=== PATIENT | male | born 1945 | race Caucasian/White ===

== ENCOUNTER 2023-02-26 11:53 | Emergency (ER) | payer MEDICARE, MEDICAID ==
[~2023-02-26] VITALS: Ht 167.6 cm; Wt 120.0 kg
[~2023-02-26 11:53] MED LIST: ASPIRIN; CINA60 MT; DOCU-332 MT; FENO134C21 MT; GLIP5TAB22 PO; LASIX; METO-396 MT; METROPOLOL; NIFE90TA60 MT; NIFEDIPINE; OMEP20CA14 MT; SEVE800T8 MT; SITA50TA3 MT
[2023-02-26 12:22] VITALS: O2SAT 98
[2023-02-26] MEDS ORDERED: ACETAMINOPHEN 325MG TABLET PO ONE (13:00)
[2023-02-26] MEDS ORDERED: METHOCARBAMOL 500MG TABLET PO ONE (13:00)
[2023-02-26] MEDS ORDERED: TOPUD MT ×2 (17:33→17:42)
[2023-02-26] MEDS ORDERED: LIDO700A15 TP ×2 (17:33→17:42)
[2023-02-26 18:32] VITALS: BP 125/68; PULSE 84; RESP 18; TEMP 98
== END 2023-02-26 18:34 | disposition home or self-care (01) ==
LOC: ER 11:53
DX: M54.50 Low back pain, unspecified (principal); Z79.899 Other long term (current) drug therapy; Z88.0 Allergy status to penicillin; I12.0 Hypertensive chronic kidney disease with stage 5 chronic kidney disease or end stage renal disease; N18.6 End stage renal disease
CPT/HCPCS: 72131; 99284

== ENCOUNTER 2024-04-28 17:31 | Inpatient (IN) | payer MEDICARE, MEDICAID ==
[~2024-04-28] VITALS: Ht 170.2 cm; Wt 114.3 kg
[~2024-04-28 17:31] MED LIST changes: -DOCU-332 MT; +LIDO700A15 TP; +TOPUD MT; +[UNRECOGNIZED DRUG - CODE] MT
[2024-04-28] MEDS: CALCIUM GLUCONATE 100MG/ML 10ML VIAL IV ONE (18:22)
[2024-04-28] MEDS: ATROPINE SULFATE 1MG/10ML SYR IV ONE (18:28)
[2024-04-28] MEDS ORDERED: EPINEPHRINE 5 MG in SODIUM CHLORIDE 0.9% 245 ML IV STA (18:41)
[2024-04-28] MEDS: EPINEPHRINE 5 MG in SODIUM CHLORIDE 0.9% 245 ML IV STA (19:42)
[2024-04-28 19:48] LABS: BASOPHILS % 0.8 % (0.0-2.0); EOSINOPHILS % 1.7 % (0.0-5.0); HEMATOCRIT. 33.9 % (42.0-52.0); LYMPHOCYTES % 34.6 % (20.0-50.0); MEAN CORPUSCULAR HEMOGLOBIN 29.9 pg (28.0-32.0); MEAN CORPUSCULAR HGB CONC 32.5 g/dL (31.0-37.0); MEAN CORPUSCULAR VOLUME 92.1 fL (80.0-94.0); MEAN PLATELET VOLUME 9.3 fl (7.4-10.4); MONOCYTES % 11.2 % (2.0-8.0); NEUTROPHILS % 51.7 % (40.0-76.0); PLATELET 210 x1000/uL (130-400); RED BLOOD CELL COUNT 3.68 mill/uL (4.7-6.1); RED CELL DISTRIBUTION WIDTH 14.8 % (11.6-14.6); WHITE BLOOD COUNT 9.8 x1000/uL (4.5-11.0)
[2024-04-28 19:56] LABS: CHLORIDE 101 mEq/L (98-107); SODIUM 141 mEq/L (136-145)
[2024-04-28 19:57] LABS: CARBON DIOXIDE 25 mEq/L (21-32)
[2024-04-28 19:58] LABS: CALCIUM 9.8 mg/dL (8.7-10.4)
[2024-04-28 20:02] LABS: GLUCOSE 179 mg/dL (70-105); UREA NITROGEN BLOOD 35 mg/dL (9-23)
[2024-04-28 20:03] LABS: TROPONIN I HIGH SENSITIVITY 18 ng/L (3.0-53)
[2024-04-28 20:09] LABS: PARTIAL THROMBOPLASTIN TIME 25.2 sec (23.4-31.0); PROTHROMBIN TIME 11.4 sec (9.6-11.0)
[2024-04-28 20:37] LABS: CREATININE 5.8 mg/dL (0.6-1.3)
[2024-04-28] MEDS ORDERED: DOPAMINE 800MG PREMIX (DOUBLE) 250 ML IV PRN (21:00)
[2024-04-28] MEDS ORDERED: IPRATROPIUM/ALBUTEROL 0.5-3(2.5)MG/3ML NEB HHN PRN (21:15)
[2024-04-28] MEDS ORDERED: DEXTROSE 50% WATER 50ML SYRINGE IV PRN (21:15)
[2024-04-28] MEDS ORDERED: GUAIFENESIN 200MG/10ML SUGAR FREE UDC PO PRN (21:30)
[2024-04-28] MEDS: DOPAMINE 800MG PREMIX (DOUBLE) 250 ML IV PRN (22:18)
[2024-04-28] MEDS: ENOXAPARIN 40MG/0.4ML SYR SUBCUT SCH (22:28)
[2024-04-28 23:24] LABS: PHOSPHORUS 6.2 mg/dL (2.5-4.9)
[2024-04-28 23:50] LABS: LACTIC ACID 4.5 mmol/L (0.4-2.0)
[2024-04-29] VITALS (9 sets, daily range): BP systolic 145–184; BP diastolic 56–89; PULSE 88–99; RESP 15–19; TEMP 36.61404–36.6696; O2SAT 99–100
[2024-04-29] MEDS ORDERED: SODIUM CHLORIDE 0.45% 500 ML IV ONE (00:45)
[2024-04-29 03:32] LABS: HEMATOCRIT. 35.4 % (42.0-52.0); HEMOGLOBIN. 11.7 g/dL (14.0-18.0); MEAN CORPUSCULAR HEMOGLOBIN 30.4 pg (28.0-32.0); MEAN CORPUSCULAR HGB CONC 33.1 g/dL (31.0-37.0); MEAN CORPUSCULAR VOLUME 92.1 fL (80.0-94.0); MEAN PLATELET VOLUME 9.6 fl (7.4-10.4); PLATELET 225 x1000/uL (130-400); RED BLOOD CELL COUNT 3.84 mill/uL (4.7-6.1); RED CELL DISTRIBUTION WIDTH 14.5 % (11.6-14.6); WHITE BLOOD COUNT 12.2 x1000/uL (4.5-11.0)
[2024-04-29 03:36] LABS: CHLORIDE 91 mEq/L (98-107); POTASSIUM 4.6 mEq/L (3.5-5.1)
[2024-04-29 03:37] LABS: CARBON DIOXIDE 22 mEq/L (21-32)
[2024-04-29 03:42] LABS: IRON 38 ug/dL (65-175)
[2024-04-29 03:43] LABS: LDL CHOLESTEROL 114 mg/dL (5-100); TRIGLYCERIDE 62 mg/dL (0-150); UREA NITROGEN BLOOD 40 mg/dL (9-23)
[2024-04-29 03:44] LABS: ALANINE AMINOTRANSFERASE 9 IU/L (10-49); ALBUMIN 4.8 g/dL (3.2-4.8); ASPARTATE AMINOTRANSFERASE 12 IU/L (<34); CHOLESTEROL 133 mg/dL (<200); HDL CHOLESTEROL 28 mg/dL (>55); PHOSPHORUS 5.5 mg/dL (2.5-4.9)
[2024-04-29 03:45] LABS: BILIRUBIN TOTAL 0.3 mg/dL (0.1-1.0); FERRITIN 1542 ng/mL (22-322); FOLIC ACID (FOLATE) SERUM > 20.00 ng/mL (>5.38); PROTEIN TOTAL 7.3 g/dL (6.0-8.3); TOTAL IRON BINDING CAPACITY 288 ug/dl (250-425); VITAMIN B12 SERUM 573 pg/mL (211-911)
[2024-04-29 03:46] LABS: THYROID STIMULATING HORMONE 1.04 uIU/mL (0.55-4.78)
[2024-04-29 03:51] LABS: SODIUM 131 mEq/L (136-145)
[2024-04-29 03:56] LABS: GLUCOSE 587 mg/dL (70-105)
[2024-04-29 03:57] LABS: CREATININE 6.3 mg/dL (0.6-1.3)
[2024-04-29 04:19] LABS: DIFFERENTIAL COMMENT 1
[2024-04-29 05:37] LABS: ATYPICAL LYMPHOCYTES 1; PLATELET ESTIMATE NORMAL
[2024-04-29] MEDS: INSULIN REGULAR (HUMULIN R) 1000UNITS/10ML VIAL SUBCUT NR (06:05)
[2024-04-29 06:42] LABS: BG BASE EXCESS 2.9 mmol/L (-2.0-3.0); BG CARBOXYHEMOGLOBIN 0.9 % (0.5-1.5); BG DEOXYHEMOGLOBIN 4.3 % (0.0-5.0); BG FRACTION INSPIRED OXYGEN 21; BG HCO3 ACT 28.1 mmol/L (21.0-28.0); BG OXYGEN SATURATION 95.7 % (94.0-98.0); BG OXYHEMOGLOBIN 94.8 % (94.0-98.0); BG PCO2 45.1 mmHg (35.0-48.0); BG PH 7.412 (7.350-7.450); BG SAMPLE SITE RIGHT RADIAL; BG TOTAL HEMOGLOBIN 12.7 g/dL (13.5-17.5); BG VENT MODE ROOM AIR
[2024-04-29] MEDS: INSULIN LISPRO 100 UNITS/ML SUBCUT SCH (08:20)
[2024-04-29] MEDS: BLOOD SUGAR DIAGNOSTIC STRIP TEST SCH (09:15)
[2024-04-29] MEDS: CINACALCET HCL 60MG TABLET PO SCH (09:39)
[2024-04-29] MEDS: SEVELAMER CARBONATE 800 MG TABLET PO SCH (09:39)
[2024-04-29] MEDS: FOLIC ACID/VITAMIN B COMP W-C TABLET PO SCH (09:39)
[2024-04-29] MEDS: ONDANSETRON HCL 4MG/2ML INJ IV PRN (15:42)
[2024-04-29] MEDS: HYDRALAZINE 20MG/ML VIAL IV PRN (15:50)
[2024-04-29] MEDS: ENOXAPARIN 40MG/0.4ML SYR SUBCUT SCH (20:55)
[2024-04-30 05:09] LABS: BASOPHILS % 0.9 % (0.0-2.0); EOSINOPHILS % 1.4 % (0.0-5.0); HEMATOCRIT. 34.4 % (42.0-52.0); HEMOGLOBIN. 11.4 g/dL (14.0-18.0); LYMPHOCYTES % 10.3 % (20.0-50.0); MEAN CORPUSCULAR HEMOGLOBIN 30.6 pg (28.0-32.0); MEAN CORPUSCULAR HGB CONC 33.2 g/dL (31.0-37.0); MEAN CORPUSCULAR VOLUME 92.1 fL (80.0-94.0); MEAN PLATELET VOLUME 9.4 fl (7.4-10.4); MONOCYTES % 13.1 % (2.0-8.0); NEUTROPHILS % 74.3 % (40.0-76.0); PLATELET 170 x1000/uL (130-400); RED BLOOD CELL COUNT 3.73 mill/uL (4.7-6.1); RED CELL DISTRIBUTION WIDTH 14.7 % (11.6-14.6); WHITE BLOOD COUNT 6.8 x1000/uL (4.5-11.0)
[2024-04-30 05:17] LABS: POTASSIUM 4.7 mEq/L (3.5-5.1)
[2024-04-30 05:18] LABS: CALCIUM 9.6 mg/dL (8.7-10.4)
[2024-04-30 05:25] LABS: PHOSPHORUS 5.8 mg/dL (2.5-4.9)
[2024-04-30 05:37] LABS: CREATININE 5.8 mg/dL (0.6-1.3)
[2024-05-01] VITALS (76 sets, daily range): BP systolic 77–178; BP diastolic 34–71; PULSE 61–81; RESP 12–26; TEMP 36.55848–37.05852; O2SAT 89–100
[2024-05-01 06:51] LABS: CHLORIDE 100 mEq/L (98-107); SODIUM 140 mEq/L (136-145)
[2024-05-01 06:52] LABS: CALCIUM 9.5 mg/dL (8.7-10.4); CARBON DIOXIDE 25 mEq/L (21-32)
[2024-05-01 06:55] LABS: BASOPHILS % 1.3 % (0.0-2.0); EOSINOPHILS % 2.8 % (0.0-5.0); HEMATOCRIT. 31.7 % (42.0-52.0); HEMOGLOBIN. 10.5 g/dL (14.0-18.0); LYMPHOCYTES % 13.1 % (20.0-50.0); MEAN CORPUSCULAR HEMOGLOBIN 30.5 pg (28.0-32.0); MEAN CORPUSCULAR HGB CONC 33.1 g/dL (31.0-37.0); MEAN CORPUSCULAR VOLUME 92.3 fL (80.0-94.0); MEAN PLATELET VOLUME 9.6 fl (7.4-10.4); NEUTROPHILS % 68.8 % (40.0-76.0); PLATELET 189 x1000/uL (130-400); RED BLOOD CELL COUNT 3.43 mill/uL (4.7-6.1); RED CELL DISTRIBUTION WIDTH 14.6 % (11.6-14.6); WHITE BLOOD COUNT 6.8 x1000/uL (4.5-11.0)
[2024-05-01 06:57] LABS: UREA NITROGEN BLOOD 46 mg/dL (9-23)
[2024-05-01 06:59] LABS: PHOSPHORUS 7.2 mg/dL (2.5-4.9)
[2024-05-01 07:04] LABS: CREATININE 7.9 mg/dL (0.6-1.3); GLUCOSE 116 mg/dL (70-105)
[2024-05-01] MEDS: SEVELAMER CARBONATE 800 MG TABLET PO SCH (18:20)
[2024-05-01 22:38] LABS: HEPATITIS B SURFACE ANTIGEN NEGATIVE (Negative)
[2024-05-01 22:58] LABS: HEPATITIS A AB IGM NEGATIVE (Negative)
[2024-05-01 22:59] LABS: HEPATITIS B CORE AB IGM NEGATIVE (Negative); HEPATITIS C AB NON REACTIVE (Neg) (Negative)
[2024-05-02] VITALS (15 sets, daily range): BP systolic 122–168; BP diastolic 48–65; PULSE 74–85; RESP 15–20; TEMP 36.61404–37.16964; O2SAT 95–99
[2024-05-02] MEDS: ACETAMINOPHEN 325MG TABLET PO PRN (06:55)
[2024-05-02 08:37] LABS: BASOPHILS % 1.8 % (0.0-2.0); EOSINOPHILS % 3.3 % (0.0-5.0); HEMATOCRIT. 34.5 % (42.0-52.0); HEMOGLOBIN. 11.3 g/dL (14.0-18.0); LYMPHOCYTES % 12.9 % (20.0-50.0); MEAN CORPUSCULAR HEMOGLOBIN 30.2 pg (28.0-32.0); MEAN CORPUSCULAR HGB CONC 32.8 g/dL (31.0-37.0); MEAN CORPUSCULAR VOLUME 92.2 fL (80.0-94.0); MEAN PLATELET VOLUME 9.3 fl (7.4-10.4); MONOCYTES % 11.5 % (2.0-8.0); NEUTROPHILS % 70.5 % (40.0-76.0); PLATELET 219 x1000/uL (130-400); RED BLOOD CELL COUNT 3.74 mill/uL (4.7-6.1); RED CELL DISTRIBUTION WIDTH 14.5 % (11.6-14.6); WHITE BLOOD COUNT 5.8 x1000/uL (4.5-11.0)
[2024-05-02 09:24] LABS: CALCIUM 9.8 mg/dL (8.7-10.4); POTASSIUM 4.6 mEq/L (3.5-5.1)
[2024-05-02 09:32] LABS: PHOSPHORUS 5.8 mg/dL (2.5-4.9)
[2024-05-02 10:59] LABS: CREATININE 6.7 mg/dL (0.6-1.3)
[2024-05-02] MEDS ORDERED: SEVE800T8 PO (12:44)
== END 2024-05-02 15:11 | disposition home or self-care (01) | DRG 291 ==
LOC: ER 17:31 → EDBEDREQ 17:46 → CVICU 19:58 → EDBEDREQ 20:01 → EDBEDREQTM 20:01 → CVICU 05-01 05:25 → 8WST 05-02 05:52
PROVIDERS: ADMIT Hospitalist; ATTEND Hospitalist
PROC: 5A1D70Z Performance of Urinary Filtration, Intermittent, Less than 6 Hours Per Day (ICD-10-PCS; principal; 2024-05-01)
DX: I13.2 Hypertensive heart and chronic kidney disease with heart failure and with stage 5 chronic kidney disease, or end stage renal disease (principal); I50.43 Acute on chronic combined systolic (congestive) and diastolic (congestive) heart failure; J96.01 Acute respiratory failure with hypoxia; N18.6 End stage renal disease; I44.2 Atrioventricular block, complete; E87.1 Hypo-osmolality and hyponatremia; N25.81 Secondary hyperparathyroidism of renal origin; E11.65 Type 2 diabetes mellitus with hyperglycemia; E11.22 Type 2 diabetes mellitus with diabetic chronic kidney disease; E78.1 Pure hyperglyceridemia; E66.9 Obesity, unspecified; E83.39 Other disorders of phosphorus metabolism; K21.9 Gastro-esophageal reflux disease without esophagitis; R00.1 Bradycardia, unspecified; T50.995A Adverse effect of other drugs, medicaments and biological substances, initial encounter; E83.52 Hypercalcemia; E87.5 Hyperkalemia; D63.1 Anemia in chronic kidney disease; Z63.4 Disappearance and death of family member; Z87.01 Personal history of pneumonia (recurrent); Z88.0 Allergy status to penicillin; Z99.2 Dependence on renal dialysis; Z79.899 Other long term (current) drug therapy; Z82.49 Family history of ischemic heart disease and other diseases of the circulatory system; Y92.89 Other specified places as the place of occurrence of the external cause
CPT/HCPCS: 36415; 71045; 80048; 82962; 83605; 83735; 83880; 84100; 84145; 84484; 85025; 85379; 86705; 86709; 87340; 90935; 93005; 93970; 99285; J0360; J0461; J0610; J1265; J1650; J1815; J2405; J3490; J7050

== ENCOUNTER → 2025-03-23 | Day surgery (SDC) | payer MEDICARE, MEDICAID ==
[~2025-03-23] MED LIST changes: -ASPIRIN; +ATOR20TA PO; -GLIP5TAB22 PO; +HYDR50SO PO; -LASIX; +LIDO-53 TP; -LIDO700A15 TP; +LOSA25TA26 PO; -METO-396 MT; +METO25TA6 PO; -METROPOLOL; -NIFE90TA60 MT; +NIFE90TA60 PO; -NIFEDIPINE; -OMEP20CA14 MT; -SEVE800T8 MT; +SEVE800T8 PO
[2025-03-23 10:57] LABS: CREATININE 4.0 mg/dL (0.6-1.3); UREA NITROGEN BLOOD 14.0 mg/dL (9-23)
[2025-03-23] MEDS: SODIUM CHLORIDE 0.9% 500 ML IV ONE (11:27)
[2025-03-23 14:24] VITALS: PULSE 69; RESP 24; O2SAT 93
[2025-03-23] MEDS: IPRATROPIUM/ALBUTEROL 0.5-3(2.5)MG/3ML NEB HHN NR (14:24)
== END | disposition home or self-care (01) ==
LOC: OR 09:57
PROVIDERS: ATTEND Internal Medicine Gastroenterology
DX: R13.19 Other dysphagia (principal); R63.4 Abnormal weight loss; K44.9 Diaphragmatic hernia without obstruction or gangrene; K29.80 Duodenitis without bleeding; K25.9 Gastric ulcer, unspecified as acute or chronic, without hemorrhage or perforation; K29.60 Other gastritis without bleeding; E78.5 Hyperlipidemia, unspecified; I12.0 Hypertensive chronic kidney disease with stage 5 chronic kidney disease or end stage renal disease; E11.22 Type 2 diabetes mellitus with diabetic chronic kidney disease; N18.6 End stage renal disease; Z99.2 Dependence on renal dialysis; Z95.0 Presence of cardiac pacemaker; Z79.899 Other long term (current) drug therapy; Z98.890 Other specified postprocedural states; Z88.0 Allergy status to penicillin; Z82.49 Family history of ischemic heart disease and other diseases of the circulatory system; Z83.3 Family history of diabetes mellitus
CPT/HCPCS: 43239; 80048; 82962; 36415; 88312; 88313; 88305; 94640; A4615